=== PATIENT | female | born 1985 | race Caucasian/White ===

== ENCOUNTER 2017-03-22 12:32 | Emergency (ER) | payer MEDICAID ==
[2017-03-22 13:05] VITALS: BP 147/86
--- NOTE | 2017-03-22 13:53 | EDM.PDOC ---
ED HPI GENERAL MEDICAL PROBLEM - General Chief Complaint: Genitourinary Problem Stated Complaint: DARK URINE UTI? Time Seen by Provider: 03/22/17 13:10 Source of Information: Reports: Patient History Limitations: Reports: No Limitations - History of Present Illness INITIAL COMMENTS - FREE TEXT/NARRATIVE: Pt is a type 1 diabetic and she has had the urge to void frequently. She has pain in the suprapupic area. Onset: Gradual, Other ( started last nite. ) Duration: Hour(s): Location: Reports: Abdomen Quality: Reports: Sharp, Stabbing Associated Symptoms: Reports: Other (pt has the urge to void frequently. She has a bleeding sore on her labia. She is concerned about hr kidney funtion, ) - Related Data Allergies Allergy/AdvReac Type Severity Reaction Status Date / Time No Known Allergies Allergy Verified 05/11/16 14:50 Home Meds: Home Meds ALPRAZolam [Xanax] 0.5 mg PO BID 05/11/16 [History] Aspirin [Adult Low Dose Aspirin EC] 81 mg PO DAILY 05/11/16 [History] Insulin Aspart [Novolog Flexpen] units SQ ASDIRECTED 05/11/16 [History] Insulin Glarg,Human.Rec.Analog [LantUS Solostar] 11 unit SUBCUT BEDTIME [History] Past Medical History Psychiatric History: Reports: Anxiety, Depression, Suicide Attempt Endocrine/Metabolic History: Reports: Diabetes, Type I - Infectious Disease History Infectious Disease History: Reports: C-Difficile Social & Family History - Tobacco Use Smoking Status *Q: Never Smoker - Caffeine Use Caffeine Use: Reports: Soda, Tea - Recreational Drug Use Recreational Drug Use: Yes Drug Use in Last 12 Months: Yes Recreational Drug Type: Reports: Marijuana/Hashish Recreational Drug Use Frequency: Rarely ED ROS GENERAL - Review of Systems Review Of Systems: See Below Constitutional: Reports: No Symptoms HEENT: Reports: Eye Discharge Respiratory: Reports: No Symptoms Cardiovascular: Reports: No Symptoms Endocrine: Reports: No Symptoms GI/Abdominal: Reports: No Symptoms : Reports: Dysuria, Urgency Musculoskeletal: Reports: Other (pt has a sore on the left labia that she is concerned about. ) Skin: Reports: No Symptoms ED EXAM, RENAL/ - Physical Exam Exam: See Below Text/Narrative:: PT ARRIVED WITH A HISTORY OF URGENCY AND WANTING TO VOID OFTEN. tHIS STARTED LAST NITE. sHE IS A TYPE 1 DIABETIC AND SHE WAS CONCERNED AOUT HER KIDNEY FUNTION. sHE HAS A LESION ON HER LEFT LABIA WHICH SHE WANTED TO HAVE CHECKED. Exam Limited By: No Limitations General Appearance: Alert, Anxious Ears: Normal TMs Nose: Normal Inspection Throat/Mouth: Normal Inspection Head: Atraumatic Neck: Normal Inspection Respiratory/Chest: No Respiratory Distress Cardiovascular: Regular Rate, Rhythm (Female) Exam: Other (URGENCY AND THE URGE TO VOID FREQUENTLY pT HAS SMALL CYST ON THE LEFT LABIA. sHE ONLY HAS THE ONE LESION tHERE WAS A FAIR AMOUNT OF DISCHARGE PRESENT. a CC AND CHLAYMIDA CULTURE WAS OBTAINED. hER URINE WAS CULTURE. hER CHEMS LOOKED GOOD. ) Rectal (Female) Exam: Deferred Back Exam: Normal Inspection Extremities: Normal Inspection Neurological: Alert, Oriented Course - Vital Signs Last Recorded V/S: Last Vital Signs Temp 36.6 C 03/22/17 13:03 Pulse 107 H 03/22/17 13:03 Resp 16 03/22/17 13:03 BP 147/86 H 03/22/17 13:03 Pulse Ox 100 03/22/17 13:03 - Orders/Labs/Meds Orders: Active Orders 24 hr Category Date Time Status CHLAMYDIA,AND GC BY APTIMA Stat Lab 03/22/17 14:38 Received CULTURE URINE [RM] Stat Lab 03/22/17 14:36 Received Labs: Laboratory Tests 03/22/17 03/22/17 03/22/17 Range/Units 13:37 13:48 13:49 WBC 7.8 (4.5-11.0) K/uL RBC 4.94 (3.30-5.50) M/uL Hgb 13.0 (12.0-15.0) g/dL Hct 41.3 (36.0-48.0) % MCV 84 (80-98) fL MCH 26 L (27-31) pg MCHC 32 (32-36) % Plt Count 422 H (150-400) K/uL Neut % (Auto) 66 (36-66) % Lymph % (Auto) 26 (24-44) % Archer % (Auto) 8 H (2-6) % Eos % (Auto) 1 L (2-4) % Baso % (Auto) 0 (0-1) % Sodium 142 (140-148) mmol/L Potassium 3.9 (3.6-5.2) mmol/L Chloride 103 (100-108) mmol/L Carbon Dioxide 30 (21-32) mmol/L Anion Gap 9.2 (5.0-14.0) mmol/L BUN 11 (7-18) mg/dL Creatinine 0.9 (0.6-1.0) mg/dL Est Cr Clr Drug Dosing 72.95 mL/min Estimated GFR (MDRD) > 60 (>60) Glucose 108 H (74-106) mg/dL Calcium 9.9 (8.5-10.1) mg/dL Total Bilirubin 0.4 (0.2-1.0) mg/dL AST 25 (15-37) U/L ALT 32 (12-78) U/L Alkaline Phosphatase 68 (46-116) U/L Total Protein 7.8 (6.4-8.2) g/dL Albumin 4.1 (3.4-5.0) g/dL Globulin 3.7 H (2.3-3.5) g/dL Albumin/Globulin Ratio 1.1 L (1.2-2.2) Urine Color Yellow Urine Appearance Slightly cloudy Urine pH 6.5 (4.5-8.0) Ur Specific [place] 1.005 L (1.008-1.030) Urine Protein Negative (NEGATIVE) mg/dL Urine Glucose (UA) 100 H (NEGATIVE) mg/dL Urine Ketones Negative (NEGATIVE) mg/dL Urine Occult Blood Large (NEGATIVE) Urine Nitrite Negative (NEGATIVE) Urine Bilirubin Negative (NEGATIVE) Urine Urobilinogen Normal (NORMAL) mg/dL Ur Leukocyte Esterase Negative (NEGATIVE) Urine RBC 20-30 H (0-5) Urine WBC 0-5 (0-5) Ur Epithelial Cells Rare Amorphous Sediment Not seen Urine Bacteria Rare Urine Mucus Not seen Urine HCG, Qual 03/22/ Range/Units 14:10 WBC (4.5-11.0) K/uL RBC (3.30-5.50) M/uL Hgb (12.0-15.0) g/dL Hct (36.0-48.0) % MCV (80-98) fL MCH (27-31) pg MCHC (32-36) % Plt Count (150-400) K/uL Neut % (Auto) (36-66) % Lymph % (Auto) (24-44) % Archer % (Auto) (2-6) % Eos % (Auto) (2-4) % Baso % (Auto) (0-1) % Sodium (140-148) mmol/L Potassium (3.6-5.2) mmol/L Chloride (100-108) mmol/L Carbon Dioxide (21-32) mmol/L Anion Gap (5.0-14.0) mmol/L BUN (7-18) mg/dL Creatinine (0.6-1.0) mg/dL Est Cr Clr Drug Dosing mL/min Estimated GFR (MDRD) (>60) Glucose (74-106) mg/dL Calcium (8.5-10.1) mg/dL Total Bilirubin (0.2-1.0) mg/dL AST (15-37) U/L ALT (12-78) U/L Alkaline Phosphatase (46-116) U/L Total Protein (6.4-8.2) g/dL Albumin (3.4-5.0) g/dL Globulin (2.3-3.5) g/dL Albumin/Globulin Ratio (1.2-2.2) Urine Color Urine Appearance Urine pH (4.5-8.0) Ur Specific [place] (1.008-1.030) Urine Protein (NEGATIVE) mg/dL Urine Glucose (UA) (NEGATIVE) mg/dL Urine Ketones (NEGATIVE) mg/dL Urine Occult Blood (NEGATIVE) Urine Nitrite (NEGATIVE) Urine Bilirubin (NEGATIVE) Urine Urobilinogen (NORMAL) mg/dL Ur Leukocyte Esterase (NEGATIVE) Urine RBC (0-5) Urine WBC (0-5) Ur Epithelial Cells Amorphous Sediment Urine Bacteria Urine Mucus Urine HCG, Qual Negative - Re-Assessments/Exams Free Text/Narrative Re-Assessment/Exam: 03/22/17 15:08 SUMMER WAS NEG. uRINE HAS RBCS AND SOME WBCS A CULTURE WAS SET UP. a CHLAMYDIA CULTURE FROM THE CERVIX WAS DONE. Departure - Departure Time of Disposition: 15:13 Disposition: Home, Self-Care 01 Condition: Fair Clinical Impression: UTI (urinary tract infection) - Discharge Information Instructions: Urinary Tract Infection, Adult, [id number] Referrals: PCP,None [Primary Care Provider] - Forms: ED Department Discharge Care Plan Goals: PUSH FLUIDS, CIPRO 500MG BID. RTC IF PROBLEMS. - My Orders Last 24 Hours: My Active Orders 03/22/17 14:36 CULTURE URINE [RM] Stat 03/22/17 14:38 CHLAMYDIA,AND GC BY APTIMA Stat - Assessment/Plan Last 24 Hours: My Active Orders 03/22/17 14:36 CULTURE URINE [RM] Stat 03/22/17 14:38 CHLAMYDIA,AND GC BY APTIMA Stat
== END 2017-03-22 15:24 | disposition home or self-care (01) ==
LOC: JP.ED 12:32
DX: N39.0 Urinary tract infection, site not specified (principal)
CPT/HCPCS: 36415; 80053; 81001; 81025; 85025; 87086; 87220; 87491; 87591; 99283; 99284